=== PATIENT | female | born 1995 | race Caucasian/White ===

== ENCOUNTER 2025-03-16 17:53 | Emergency (ER) | payer MEDICAID ==
[~2025-03-16] VITALS: Ht 167.6 cm; Wt 105.0 kg
[2025-03-16 18:08] VITALS: O2SAT 99
[2025-03-16] MEDS ORDERED: IBUP-2030 MT (21:14)
[2025-03-16] MEDS ORDERED: BO1 TP (21:14)
[2025-03-16] MEDS: BACITRACIN ZINC OINT UDPKT TOP ONE (21:15)
[2025-03-16 21:21] VITALS: BP 131/80; PULSE 70; RESP 20; TEMP 36.7; O2SAT 100
== END 2025-03-16 21:25 | disposition home or self-care (01) ==
LOC: ER 17:53
DX: L03.032 Cellulitis of left toe (principal); Z90.49 Acquired absence of other specified parts of digestive tract
CPT/HCPCS: 99282

== ENCOUNTER 2025-03-18 14:54 | Emergency (ER) | payer MEDICAID ==
[~2025-03-18] VITALS: Ht 167.6 cm; Wt 120.0 kg
[~2025-03-18 14:54] MED LIST: BO1 TP; IBUP-2030 MT
[2025-03-18 15:07] VITALS: O2SAT 98
[2025-03-18 15:50] LABS: BASOPHILS % 0.2 % (0.0-2.0); EOSINOPHILS % 0.4 % (0.0-5.0); HEMATOCRIT. 37.5 % (36.0-48.0); HEMOGLOBIN. 12.4 g/dL (12.0-16.0); MEAN CORPUSCULAR HGB CONC 33.1 g/dL (31.0-37.0); MEAN CORPUSCULAR VOLUME 81.6 fL (81.0-99.0); MEAN PLATELET VOLUME 7.9 fl (7.4-10.4); NEUTROPHILS % 76.4 % (40.0-76.0); PLATELET 351 x1000/uL (130-400); RED CELL DISTRIBUTION WIDTH 14.6 % (11.6-14.6); WHITE BLOOD COUNT 13.3 x1000/uL (4.5-11.0)
[2025-03-18 15:59] LABS: CHLORIDE 105 mEq/L (98-107); POTASSIUM 3.5 mEq/L (3.5-5.1); SODIUM 140 mEq/L (136-145)
[2025-03-18 16:00] LABS: CARBON DIOXIDE 25 mEq/L (21-32)
[2025-03-18 16:01] LABS: CALCIUM 9.1 mg/dL (8.7-10.4)
[2025-03-18 16:05] LABS: CREATININE 0.7 mg/dL (0.6-1.0); GLUCOSE 90 mg/dL (70-105); UREA NITROGEN BLOOD 7 mg/dL (9-23)
[2025-03-18] MEDS: SODIUM CHLORIDE 0.9% 1,000 ML IV ONE (18:03)
[2025-03-18 18:30] LABS: BASOPHILS % 0.3 % (0.0-2.0); EOSINOPHILS % 0.5 % (0.0-5.0); HEMOGLOBIN. 13.2 g/dL (12.0-16.0); LYMPHOCYTES % 20.9 % (20.0-50.0); MEAN CORPUSCULAR HEMOGLOBIN 27.5 pg (28.0-32.0); MEAN CORPUSCULAR VOLUME 83.3 fL (81.0-99.0); MEAN PLATELET VOLUME 8.2 fl (7.4-10.4); MONOCYTES % 4.8 % (2.0-8.0); NEUTROPHILS % 73.5 % (40.0-76.0); PLATELET 378 x1000/uL (130-400); RED CELL DISTRIBUTION WIDTH 14.6 % (11.6-14.6); WHITE BLOOD COUNT 11.8 x1000/uL (4.5-11.0)
[2025-03-18 18:38] LABS: CHLORIDE 104 mEq/L (98-107); SODIUM 140 mEq/L (136-145)
[2025-03-18 18:39] LABS: CALCIUM 9.3 mg/dL (8.7-10.4); CARBON DIOXIDE 28 mEq/L (21-32)
[2025-03-18 18:44] LABS: CREATININE 0.8 mg/dL (0.6-1.0); GLUCOSE 96 mg/dL (70-105); UREA NITROGEN BLOOD 8 mg/dL (9-23)
[2025-03-18 18:48] LABS: HCG SCREEN NEGATIVE
[2025-03-18 20:17] LABS: CLARITY URINE CLEAR (CLEAR); COLOR URINE YELLOW (YELLOW); GLUCOSE URINE NEGATIVE (NEGATIVE); KETONES URINE 1+ (NEGATIVE); LEUKOCYTE ESTERASE URINE NEGATIVE (NEGATIVE); NITRITE URINE NEGATIVE (NEGATIVE); OCCULT BLOOD URINE NEGATIVE (NEGATIVE); PH URINE 6.5 (4.5-8.0); PROTEIN URINE NEGATIVE (NEGATIVE); SPECIFIC GRAVITY URINE 1.012 (1.005-1.030)
[2025-03-18 23:16] VITALS: TEMP 36.9; O2SAT 99
[2025-03-18 23:40] VITALS: BP 147/74; PULSE 82; RESP 17; TEMP 98.42
[2025-03-19] MEDS ORDERED: ACETAMINOPHEN 325MG TABLET PO PRN (11:45)
[2025-03-19] MEDS ORDERED: ONDANSETRON HCL 4MG/2ML INJ IV PRN (11:45)
[2025-03-19] MEDS ORDERED: HYDROCODONE/ACETAMINOPHEN 5/325MG TABLET PO PRN (11:45)
[2025-03-19] MEDS ORDERED: NALOXONE HCL 0.4MG/ML VIAL IV PRN (12:00)
[2025-03-19] MEDS ORDERED: PANTOPRAZOLE SODIUM 40 MG/VIAL IV SCH (12:00)
[2025-03-19] MEDS ORDERED: ENOXAPARIN 40MG/0.4ML SYR SUBCUT SCH (12:00)
== END 2025-03-18 23:41 | disposition short-term general hospital (02) ==
LOC: ER 14:54 → EDBEDREQ 17:50 → EDBEDREQTM 22:31 → ER 23:41
DX: R53.1 Weakness (principal); R27.8 Other lack of coordination; Z79.899 Other long term (current) drug therapy; Z90.49 Acquired absence of other specified parts of digestive tract; Z86.73 Personal history of transient ischemic attack (TIA), and cerebral infarction without residual deficits
CPT/HCPCS: 80048; 81003; 82962; 84703; 85025; 85610; 36415; 71045; 70450; 93005; 96360; 96361; 99285; J7030; Z7610 ×2; A4606